=== PATIENT | female | born 1975 | race Caucasian/White ===

== ENCOUNTER 2018-05-01 11:53 | Emergency (ER) | payer MEDICAID ==
[~2018-05-01] VITALS: Ht 165.1 cm; Wt 66.0 kg
[2018-05-01] MEDS ORDERED: KETOROLAC 60MG/2ML VIAL IM ONE (14:45)
[2018-05-01 14:57] VITALS: BP 151/90
== END 2018-05-01 14:57 | disposition home or self-care (01) ==
LOC: ER 13:12
DX: M54.32 Sciatica, left side (principal)
CPT/HCPCS: 81025; 96372; 99283; J1885